=== PATIENT | male | born 1980 ===

== ENCOUNTER 2018-04-15 20:23 | Emergency (ER) | payer MEDICAID ==
[2018-04-15 21:11] VITALS: BP 102/69; PULSE 98; RESP 20; TEMP 98.4; O2SAT 98
--- NOTE | 2018-04-15 21:59 | C.PDOC ---
History Of Present Illness 37 year old male presents to the ED for evaluation of a painful rash to his left flank area which developed around 2 days ago. Patient states he initially began experiencing pain around his "kidney" region, and noted the rash developed afterwards. He denies fever, chills, shortness of breath. Chief Complaint (Nursing): Abnormal Skin Integrity History Per: Patient History/Exam Limitations: no limitations Onset/Duration Of Symptoms: Days (2) Current Symptoms Are (Timing): Still Present Quality Of Symptoms: Painful Additional History Per: Patient Past Medical History Reviewed: Historical Data, Nursing Documentation, Vital Signs Vital Signs: Last Vital Signs Temp 98.4 F 04/15/18 21:07 Pulse 98 H 04/15/18 21:07 Resp 20 04/15/18 21:07 BP 102/69 04/15/18 21:07 Pulse Ox 98 04/15/18 21:07 - Medical History PMH: No Chronic Diseases Surgical History: No Surg Hx Family History: States: Unknown Family Hx - Social History Hx Alcohol Use: No Hx Substance Use: No Review Of Systems Constitutional: Negative for: Fever, Chills, Weakness ENT: Negative for: Mouth Pain, Mouth Swelling Cardiovascular: Negative for: Chest Pain, Palpitations Respiratory: Negative for: Cough, Shortness of Breath Gastrointestinal: Negative for: Nausea, Vomiting, Diarrhea Musculoskeletal: Negative for: Back Pain Skin: Positive for: Rash (left flank area ) Neurological: Negative for: Weakness, Numbness, Dizziness Physical Exam - Physical Exam Appears: Well, Non-toxic, No Acute Distress Skin: Warm, Rash (erythematous, clustered rash that extends from mid-line of back, around left flank region, and mid-line of left upper abdominal region. does not cross midline ) Head: Atraumatic, Normacephalic Eye(s): bilateral: Normal Inspection Oral Mucosa: Moist Neck: Normal ROM, Supple Chest: Symmetrical, No Deformity, No Tenderness Cardiovascular: Rhythm Regular, No Murmur Respiratory: No Accessory Muscle Use, Other (normal inspiratory effort ) Extremity: Normal ROM Extremity: Bilateral: Atraumatic Neurological/Psych: Oriented x3, Normal Cranial Nerves (grossly intact) ED Course And Treatment O2 Sat by Pulse Oximetry: 98 (on RA ) Pulse Ox Interpretation: Normal Disposition Counseled Patient/Family Regarding: Diagnosis, Need For Followup, Rx Given - Disposition Disposition: HOME/ ROUTINE Disposition Time: 21:05 Condition: STABLE Prescriptions: RX: Gabapentin 300 mg PO TID 14 Days capsule RX: valACYclovir [Valtrex] 1,000 mg PO TID 7 Days tab Instructions: Shingles (DC) Forms: [facility] (Martiniquais), General Discharge Instructions Print Language: BURKINAN - Clinical Impression Clinical Impression: Herpes zoster - 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 - Scribe Statement The provider has reviewed the documentation as recorded by the Scribe (Jenniefr Martini) All medical record entries made by the Scribe were at my direction and personally dictated by me. I have reviewed the chart and agree that the record accurately reflects my personal performance of the history, physical exam, medical decision making, and the department course for this patient. I have also personally directed, reviewed, and agree with the discharge instructions and disposition.
== END 2018-04-15 22:12 | disposition home or self-care (01) ==
LOC: C.ER 20:23
DX: B02.9 Zoster without complications (principal)